=== PATIENT | female | born 1955 | race Caucasian/White ===

== ENCOUNTER 2017-02-13 06:51 | Day surgery (SDC) | payer OTHER ==
[~2017-02-13] VITALS: Ht 157.5 cm; Wt 86.3 kg
[2017-02-13] VITALS (8 sets, daily range): BP systolic 96–154; BP diastolic 48–91; PULSE 68–78; RESP 12–18; Ht 157.5 cm; Wt 86.3 kg
[2017-02-13] MEDS ORDERED: EPHEDrine SULFATE 50 MG/5 ML SYG ONE (07:00)
--- NOTE | 2017-02-13 08:00 | RADRPT ---
PROCEDURE: XR Chest. CLINICAL INDICATION: Preop TECHNIQUE: AP Portable chest. COMPARISON: No pertinent prior examinations were submitted for comparison. FINDINGS: The cardiomediastinal silhouette is normal.The aortic arch is calcified. No focal consolidation, ple ural effusion or pneumothorax is seen. The osseous structures are intact. IMPRESSION: No radiographic evidence of acute cardiopulmonary disease. Physician Srikanth Date Time Electronically viewed and signed by Kayleigh Syed Physician on 02/13/2017 07:59 CS/
[2017-02-13 08:07] LABS: BASOPHIL # 0.1 10^3/ul (0.0-0.1); BASOPHILS % 0.9 % (0.0-2.0); EOSINOPHILS # 0.2 10^3/ul (0.0-0.5); EOSINOPHILS % 3.5 % (0.0-7.0); HEMATOCRIT 42.3 % (37.0-47.0); HEMOGLOBIN 14.2 g/dl (12.0-16.0); LYMPHOCYTES # 1.5 10^3/ul (0.8-2.9); LYMPHOCYTES % 26.8 % (15.0-51.0); MEAN CORPUSCULAR HEMOGLOBIN 30.2 pg (29.0-33.0); MEAN CORPUSCULAR HGB CONC 33.6 g/dl (32.0-37.0); MEAN PLATELET VOLUME 9.9 fl (7.4-10.4); MONOCYTE # 0.4 10^3/ul (0.3-0.9); MONOCYTES % 7.6 % (0.0-11.0); NEUTROPHIL # 3.3 10^3/ul (1.6-7.5); PLATELET COUNT 291 10^3/UL (140-415); RED CELL DISTRIBUTION WIDTH 12.9 % (11.5-14.5); WHITE BLOOD COUNT 5.4 10^3/ul (4.8-10.8)
[2017-02-13 08:26] LABS: ALBUMIN 4.4 g/dl (3.3-4.9); ALBUMIN/GLOBULIN RATIO 1.37; BILIRUBIN,INDIRECT 0.4 mg/dl (0-1.1); BILIRUBIN,TOTAL 0.4 mg/dl (0.2-1.3); TOTAL PROTEIN 7.6 g/dl (6.1-8.1)
[2017-02-13 08:31] LABS: INR 0.98
[2017-02-13 08:32] LABS: CALCIUM 9.3 mg/dl (8.4-10.2); CREATININE 0.76 mg/dl (0.44-1.00); PARTIAL THROMBOPLASTIN TIME 32.9 Sec (25.0-35.0); POTASSIUM 4.2 mmol/L (3.5-5.1)
[2017-02-13] MEDS ORDERED: FENTAnyl 50 MCG/ML VIAL ONE (09:55)
[2017-02-13] MEDS ORDERED: PROPOFOL 20 ML ONE (09:55)
[2017-02-13] MEDS ORDERED: MIDAZOLAM 1 MG/ML 2 ML INJ ONE (09:55)
[2017-02-13] MEDS ORDERED: METOCLOPRAMIDE 10 MG INJ ONE (09:55)
[2017-02-13] MEDS ORDERED: CEFAZOLIN 1 GM INJ ONE (10:07)
[2017-02-13] MEDS ORDERED: KETOROLAC 30 MG INJ ONE (10:07)
[2017-02-13] MEDS ORDERED: ONDANSETRON 4 MG INJ ONE (10:17)
[2017-02-13] MEDS ORDERED: OXYCODONE/ACETAMINOPHEN (5/325) TAB PO PRN ×2 (10:30)
[2017-02-13] MEDS ORDERED: HYDROmorphONE (0.2 MG/ML) 10ML SYG IV PRN ×3 (10:30)
[2017-02-13] MEDS ORDERED: DIPHENHYDRAMINE 50 MG INJ IV PRN (10:30)
[2017-02-13] MEDS ORDERED: ONDANSETRON 4 MG INJ IV PRN (10:30)
[2017-02-13] MEDS ORDERED: MEPERIDINE 25 MG INJ IV PRN (10:30)
--- NOTE | 2017-02-13 10:50 | SIPON ---
Date/Time of Note Date/Time of Note DATE: 02/13/17 TIME: 10:48 Operative Report Preoperative Diagnosis Postmenopausal bleeding Postoperative Diagnosis Same Operation/Procedure Performed Dilation and Curettage Surgeon Charleen Harp MD reference assistant None Anesthesia: general Estimated blood loss: minimal Transfusion Required none Specimen ECC and EMC Grafts/Implants none Complications none CHARLEEN HARP MD Feb 13, 2017 10:50
--- NOTE | 2017-02-13 11:29 | PREOPHP ---
DATE OF ADMISSION: 02/13/2017 HISTORY OF PRESENT ILLNESS: A 61-year-old female is admitted with history of postmenopausal bleedin g. PAST MEDICAL HISTORY: Unremarkable. PAST SURGICAL HISTORY: Cholecystectomy, eye surgery and back surgery. FAMILY HISTORY: Noncontributory. ALLERGIES: 1. CODEINE. 2. LIDOCAINE. PHYSICAL EXAMINATION: VITAL SIGNS: Patient is afebrile. Vital signs stable. HEAD, NECK AND CHEST: Within normal limits. ABDOMEN: Soft, nontender, nondistended. PELVIC: Normal. EXTREMITIES: Within normal limits. NEUROLOGIC: Within normal limits. IMPRESSION: Postmenopausal bleeding. PLAN: Dilation and curettage. Risks, benefits and alternatives of the procedure were explained to patient. The patient said she understood and gave informed consent for the procedure. Dictated By: CHARLEEN HOGAN/ANDREINA Conf#: [id number] DID#: [id number]
--- NOTE | 2017-02-13 12:30 | OPR ---
DATE OF OPERATION: 02/13/2017 PREOPERATIVE DIAGNOSIS: Postmenopausal bleeding. POSTOPERATIVE DIAGNOSIS: Postmenopausal bleeding. OPERATION PERFORMED: Endocervical curettage, dilation and endometrial curettage. SURGEON: Charleen Schulz MD. ANESTHESIA: General. ANESTHESIOLOGIST: Marlene Casas MD. DESCRIPTION OF PROCEDURE: The patient was taken to the operating room and placed on the operating t able in supine position. After adequate general anesthesia was given, the patient was placed in kimi anuj lithotomy position. The area was prepared and draped in the usual sterile fashion. Speculum wa s placed inside the vagina and tenaculum was used to grasp the anterior lip of the cervix. Using Ke vorkian curet, endocervical curettage was performed and specimen obtained was sent to pathology. Ne xt, using cervical dilators, the cervical os was dilated. Using a sharp curet, endometrial curettag e was performed and specimen obtained was sent to pathology. All the instruments were removed. Yaneli quate hemostasis was assured. The patient tolerated the procedure well. The patient was awakened f rom anesthesia and transferred to recovery in stable condition. ESTIMATED BLOOD LOSS: Minimal. COUNTS: All counts were correct. Dictated By: CHARLEEN HOGAN/ANDREINA Conf#: [id number] DID#: [id number]
--- NOTE | 2017-02-13 14:28 | RADRPT ---
Vent Rate: 65 bpm RR Interval: 0 msec DC Interval: 166 msec QRS Duration: 82 msec QT Interval: 382 msec QTC Interval: 397 msec P-R-T [place]: 42 - 27 - 49 degrees Normal sinus rhythm Low voltage QRS Borderline ECG Electronically Signed By: Mario Barone [id number]
== END 2017-02-13 12:20 | disposition home or self-care (01) ==
LOC: SDS 06:51
PROVIDERS: ATTEND Obstetrics & Gynecology
DX: N95.0 Postmenopausal bleeding (principal)
CPT/HCPCS: 58120; 71010; 80053; 85025; 85610; 85730; 86850; 86900; 86901; 88305; 93005; J0690; J1885; J2250; J2405; J2765; J3010